=== PATIENT | male | born 1950 | race Caucasian/White ===

== ENCOUNTER 2019-11-18 19:32 | Emergency (ER) | payer MEDICARE, BC ==
[~2019-11-18] VITALS: Ht 177.8 cm; Wt 86.2 kg
[2019-11-18 19:34] VITALS: BP 145/76; Ht 177.8 cm; Wt 86.2 kg
== END 2019-11-18 20:10 | disposition home or self-care (01) ==
LOC: ED 19:32
DX: S61.412A Laceration without foreign body of left hand, initial encounter (principal); E78.00 Pure hypercholesterolemia, unspecified; W26.9XXA Contact with unspecified sharp object(s), initial encounter; Y93.89 Activity, other specified; Y92.89 Other specified places as the place of occurrence of the external cause; Y99.8 Other external cause status
CPT/HCPCS: 90715; J2001